=== PATIENT | female | born 1960 | race Caucasian/White ===

== ENCOUNTER 2016-12-25 19:31 | Emergency (ER) | payer BC ==
[~2016-12-25] VITALS: Ht 162.6 cm; Wt 65.9 kg
[2016-12-25 19:39] VITALS: TEMP 98.6
[2016-12-25] MEDS ORDERED: JOLESSA 30 MCG-1 TAB PO (21:08)
[2016-12-25] MEDS ORDERED: EFFEXOR XR37.5 MG/CA PO (21:09)
[2016-12-25] MEDS ORDERED: VALIUM 5MG T5 MG/TAB PO (22:52)
[2016-12-25 23:03] VITALS: BP 159/74; PULSE 68
[2016-12-25] MEDS ORDERED: ANTIVERT 25MG25 MG PO (23:04)
== END 2016-12-25 23:03 | disposition home or self-care (01) ==
LOC: COL.ER 19:31
DX: R42 Dizziness and giddiness (principal); R11.2 Nausea with vomiting, unspecified; R03.0 Elevated blood-pressure reading, without diagnosis of hypertension
CPT/HCPCS: J3360; J7040

== ENCOUNTER → 2018-08-13 | Outpatient (CLI) | payer BC ==
[~2018-08-13] MED LIST: ANTIVERT 25MG25 MG PO; EFFEXOR XR37.5 MG/CA PO; JOLESSA 30 MCG-1 TAB PO; VALIUM 5MG T5 MG/TAB PO
== END ==
LOC: COL.VAS 07:52
DX: I10 Essential (primary) hypertension (principal)

== ENCOUNTER → 2022-02-03 | Outpatient (CLI) | payer BC | LOC: MC.RAD 08:24 | DX: R92.8 Other abnormal and inconclusive findings on diagnostic imaging of breast (principal) ==